=== PATIENT | female | born 1940 | race Caucasian/White ===

== ENCOUNTER → 2018-10-18 | Outpatient (CLI) | payer MEDICARE, OTHER ==
[~2018-10-18] MED LIST: ASPIRIN325 PO; CALCIUM 600 +1 EAC1 PO; CELEBREX 200 M200 M1 PO; CENTRUM SILVER1 EAC4 PO; COLACE100 MG PO; GLUCOSAMINE-CH1 EACH PO; MAXZIDE-25 MG1 EACH PO; METAMUCIL PAC1 UDPKT PO; OXYCODONE HCL 55 MG PO; POTASSIUM20 PO; VITAMINC500 PO; VYTORIN 10-201 EACH PO; XARELTO10 MG PO
== END ==
LOC: M.RAD 09:23
DX: Z12.31 Encounter for screening mammogram for malignant neoplasm of breast (principal)

== ENCOUNTER → 2020-02-12 | Outpatient (CLI) | payer MEDICARE, OTHER | LOC: M.RAD 09:22 | PROVIDERS: ATTEND Family Medicine | DX: Z12.31 Encounter for screening mammogram for malignant neoplasm of breast (principal) ==

== ENCOUNTER → 2021-06-03 | Outpatient (CLI) | payer MEDICARE, OTHER | LOC: M.RAD 09:59 | PROVIDERS: ATTEND Family Medicine | DX: Z12.31 Encounter for screening mammogram for malignant neoplasm of breast (principal) ==